=== PATIENT | male | born 1985 | race Caucasian/White ===

== ENCOUNTER 2021-11-28 18:17 | Emergency (ER) | payer OTHER, SELFPAY ==
[2021-11-28 18:18] VITALS: BP 160/99; PULSE 112; RESP 18; TEMP 36.7; O2SAT 98; BMI 32.5
--- NOTE | 2021-11-28 20:06 | EDS_ITS ---
HPI History of Present Illness Chief Complaint: Rash Informant: patient Onset/Context/Timing Onset: Weeks (1) Context: Gradual Onset Timing: Continuous Quality: See below Location: All over mostly extremities Current Severity: Moderate Maximum Severity: Moderate Worsened by: Working in hot environment and sweating, also hot bath Relieved by: Partially resolved by doxycycline otherwise not resolved by anything Associated Symptoms Associated Symptoms: No systemic symptoms Narrative Narrative: Patient presenting with a rash. He states it was everywhere when he first went to urgent care and was prescribed doxycycline for the possibility of a staph infection, especially a couple of tender discrete areas. However the rest of it has been itchy if it bothers him but for the most part the rash is asymptomatic. He denies any systemic symptoms or obvious etiologies for this rash. He takes no medications except for the doxycycline that he was prescribed, and he states there is no new lesions after starting the doxycycline. Today is his third day, he has not yet taken it tonight. He states the sore areas, 4 or 5 of them, are all improving since he started the doxycycline. PFSH PFS Medical History no medical history no medical history Home Medications prednisone 20 mg tablet 40 mg PO DAILY #8 TABLETS 11/28/21 [Rx Last Taken Unkno wn] Allergy/AdvReac Type Severity Reaction Status Date / Time No Known Allergies Allergy Verified 11/28/21 18:18 Social History Smoking Status: Current some day smoker tobacco type: cigarettes ROS ROS ED Constitutional Constitutional ED: Denies chills or fever(s) Eyes Eyes: Denies change in vision or diplopia ENT ENT ED: Denies rhinorrhea or sore throat Cardiovascular Cardiovascular: Denies chest pain or palpitations Respiratory/Chest Respiratory/Chest: Denies cough or dyspnea Gastrointestinal Gastrointestinal: Denies abdominal pain, diarrhea, nausea or vomiting Genitourinary Genitourinary ED: Denies dysuria or hematuria Musculoskeletal Musculoskeletal: Denies back pain or neck pain Integumentary Reports as per HPI and rash Neurologic Neurologic: Denies headache(s), paresthesias or weakness Psychiatric Psychiatric: Denies anxiety or suicidal thoughts EXAM Physical Exam Const Vital Signs: 11/28/21 18:18 Temperature 98.1 F Temperature Source Temporal Pulse Rate 112 H Respiratory Rate 18 Blood Pressure 160/99 H Blood Pressure Mean 119 Pulse Ox 98 Oxygen Delivery Method Room Air Positive well nourished and well developed General Appearance ED: well developed and NAD HEENT Reports moist mucous membranes normocephalic and atraumatic Eyes PERRL and EOMs intact bilaterally Neck full ROM and supple Resp Effort and Inspection: able to speak in complete sentences GI non-tender and non-distended Auscultation: normoactive bowel sounds Palpation: soft Back/Spine General Back: other FROM Extremity Extremity Narrative: Rash involving all 4 extremities, otherwise benign exam General Extremety ED: Negative for edema, pulses abnormal or tenderness General Extremity: Negative for edema or pulses abnormal Neuro oriented x3, CN's II-XII intact bilaterally and no sensory deficits noted Sensorium / Orientation: awake and alert Motor Exam: strength 5/5 throughout Psych mental status grossly normal Skin Skin Narrative: Erythematous macular rash with areas of dry scaly skin mostly on the legs, as well as more of an urticarial looking rash that is patchy showing coalescent urticaria on upper extremities. There are about 4 lesions that look like healing abscesses where the patient states they were painful but they are no longer tender, none of them appear to need drainage and appear to be resolving; 1 on the left ankle, 1 on the left forearm, and 1 on the right medial knee, 1 on the right calf. No petechiae. No bullae. MDM MDM MDM Narrative Medical decision making narrative: This almost resembles a drug rash, so I asked him a couple times to make sure that the symptoms/rash did not start after he started the doxycycline and he confirms it did not. For this reason, I think we be reasonable to try him on a 5-day course of prednisone to see if that helps this since most of it looks urticarial and a lot of it is itchy when it is symptomatic. If it makes anything worse I advised him to stop it and either return to the ER, or he may follow-up with dermatology if it persist. He is comfortable with that plan and I would continue the doxycycline because I do think it looks like a staphylococcal skin infection, but he is not septic. Discharge Plan Triage Chief Complaint: Rash ED Provider: Luis A Naik Dx/Rx/DC Orders Clinical Impression: Staph skin infection, Dermatitis, Urticaria Instructions: Staph Infection (Non-MRSA), ED Hives (Adult) Prescriptions: New prednisone 20 mg tablet 40 mg PO DAILY Qty: 8 0RF Primary Care Provider: Care Physician,Maylin Primary Referrals: Richardson Werner MD [Med Staff - [employer]] - 1 Week if not improving (or try to sooner if getting worse, and discontinue the prednisone if this occurs) Care Physician,No Primary [Primary Care Provider] - Activity Restrictions/Additional Instructions: Continue taking the doxycycline as prescribed Disposition Disposition: Home, Self Care
[2021-11-28] MEDS: DiphenhydrAMINE 25 MG Capsule 50 MG PO (20:11)
[2021-11-28] MEDS: predniSONE 20 MG Tablet 40 MG PO (20:11)
== END 2021-11-28 20:23 | disposition home or self-care (01) ==
PROVIDERS: Emergency Provider Emergency Medicine; Visit Provider Emergency Medicine
DX: L08.9 Local infection of the skin and subcutaneous tissue, unspecified (principal); B95.8 Unspecified staphylococcus as the cause of diseases classified elsewhere; L30.9 Dermatitis, unspecified; L50.9 Urticaria, unspecified; F17.210 Nicotine dependence, cigarettes, uncomplicated
CPT/HCPCS: 99283